=== PATIENT | male | born 1975 | race Caucasian/White ===

== ENCOUNTER 2022-02-07 10:45 | Observation (INO) ==
[2022-02-07 12:09] LABS: Basophils % 0.3 % (0.0-0.8); Eosinophils % 0.2 % (0.00-10.9); Hematocrit 49.8 VOL% (42.0-52.0); Immature Granulocytes % 0.6 %; Immature Granulocytes Absolute 0.07 #; Lymphocytes # 1.4 10*3/uL (1.4-4.0); Lymphocytes % 12.4 % (21.2-54.2); Mean Corpuscular HGB Conc 32.1 GM/DL (32-36); Mean Corpuscular Volume 85.4 FL (87-102); Mean Platelet Volume 9.2 FL (9.6-12.0); Monocytes # 0.7 10*3/uL (0.11-0.8); Monocytes % 6.1 % (1.7-12.7); Neutrophils % 80.4 % (38.7-73.9); Platelet Count 250 T/CUMM (130-400); Red Blood Count 5.83 MC/CUMM (3.8-5.5); Red Cell Distribution Width 12.8 % (9.3-17.3)
[2022-02-07 12:26] LABS: Bacteria,Urine Occasional /HPF (Few); Mucus,Urine Occasional /LPF (Occasional); RBC,Urine 1 /HPF (0-4)
[2022-02-07 12:28] LABS: Albumin 3.7 G/DL (3.4-5.0); Bilirubin,Total 1.8 MG/DL (0.20-1.00); Calcium 9.6 MG/DL (8.5-10.1); Potassium 3.9 MMOL/L (3.5-5.1); Total Protein 8.1 G/DL (6.4-8.2)
[2022-02-07 12:29] LABS: Urine Appearance Clear (Clear); Urine Color Yellow (Yellow)
[2022-02-07 12:30] LABS: Bilirubin,Urine Negative (Negative); Blood, Urine Negative (Negative); Glucose,Urine (UA) Negative (Negative); Ketones,Urine >160 mg/dL (Negative); Nitrite,Urine Negative (Negative); Protein,Urine Negative (Negative); Urine Urobilinogen 0.2 eU/dL (<2.0); Urine pH 5.5 (4.5-8.0)
[2022-02-07] MEDS ORDERED: ACETAMINOPHEN 325 MG TABLET PO PRN (14:03)
[2022-02-07] MEDS ORDERED: ONDANSETRON 4 MG/2 ML VIAL IV PRN (14:03)
[2022-02-07] MEDS: metroNIDAZOLE INJ 500 MG/100 ML PREMIX IV SCH ×2 (14:29→22:05)
[2022-02-07] MEDS: PIPERACILLIN/TAZOBACTAM 3,375 MG in SODIUM CHLORIDE 0.9% 100 ML IV SCH ×2 (14:30→23:08)
[2022-02-07] MEDS: SODIUM CHLORIDE 0.9% 1,000 ML IV SCH (18:00)
[2022-02-08] MEDS: metroNIDAZOLE INJ 500 MG/100 ML PREMIX IV SCH ×3 (05:49→22:07)
[2022-02-08] MEDS: PIPERACILLIN/TAZOBACTAM 3,375 MG in SODIUM CHLORIDE 0.9% 100 ML IV SCH ×3 (06:54→23:08)
[2022-02-08] MEDS: ANASTROZOLE 1 MG TABLET PO SCH (09:02)
[2022-02-08] MEDS: ZINC GLUCONATE 50 MG TABLET PO SCH (09:02)
[2022-02-08] MEDS: CHOLECALCIFEROL 1,000 UNIT TABLET PO SCH (09:02)
[2022-02-08] MEDS: ASCORBIC ACID 500 MG TABLET PO SCH (09:03)
[2022-02-08] MEDS: MULTIVITAMIN (CENTRUM) TABLET PO SCH (09:03)
[2022-02-08] MEDS: PANTOPRAZOLE 40 MG TABLET PO SCH (09:03)
[2022-02-08] MEDS: NON-FORMULARY MEDICATION (Fish,Bora,Flax Oils-Om3,6,9no1 [Omega 3-6-9] 1,200 mg Capsule) PO SCH (09:30)
[2022-02-08] MEDS: NALTREXONE 50 MG PO SCH (09:30)
[2022-02-08] MEDS: PRASTERONE 25 MG PO SCH (09:31)
[2022-02-08] MEDS: NON-FORMULARY MEDICATION (Turmeric 400 mg Capsule) PO SCH (09:31)
[2022-02-08] MEDS: SODIUM CHLORIDE 0.9% 1,000 ML IV SCH (19:00)
[2022-02-09] MEDS: metroNIDAZOLE INJ 500 MG/100 ML PREMIX IV SCH ×3 (05:40→22:26)
[2022-02-09] MEDS: SODIUM CHLORIDE 0.9% 1,000 ML IV SCH ×2 (05:40→22:26)
[2022-02-09 06:12] LABS: Basophils % 0.4 % (0.0-0.8); Eosinophils # 0.1 10*3/uL (0.0-0.87); Eosinophils % 1.8 % (0.00-10.9); Hematocrit 45.7 VOL% (42.0-52.0); Hemoglobin 14.4 GM/DL (14.0-18.0); Immature Granulocytes % 0.9 %; Immature Granulocytes Absolute 0.06 #; Lymphocytes # 1.3 10*3/uL (1.4-4.0); Lymphocytes % 19.1 % (21.2-54.2); Mean Corpuscular HGB Conc 31.5 GM/DL (32-36); Mean Corpuscular Volume 88.2 FL (87-102); Mean Platelet Volume 9.5 FL (9.6-12.0); Monocytes # 0.6 10*3/uL (0.11-0.8); Monocytes % 9.4 % (1.7-12.7); Neutrophils % 68.4 % (38.7-73.9); Platelet Count 256 T/CUMM (130-400); Red Blood Count 5.18 MC/CUMM (3.8-5.5); Red Cell Distribution Width 12.9 % (9.3-17.3); White Blood Count 6.8 T/CUMM (4-12)
[2022-02-09 06:28] LABS: Calcium 8.9 MG/DL (8.5-10.1); Osmolality,Calculated 280.3 MOS/KG (273-304)
[2022-02-09] MEDS: MULTIVITAMIN (CENTRUM) TABLET PO SCH (08:07)
[2022-02-09] MEDS: ANASTROZOLE 1 MG TABLET PO SCH (08:07)
[2022-02-09] MEDS: PIPERACILLIN/TAZOBACTAM 3,375 MG in SODIUM CHLORIDE 0.9% 100 ML IV SCH (08:07)
[2022-02-09] MEDS: PRASTERONE 25 MG PO SCH (08:08)
[2022-02-09] MEDS: NON-FORMULARY MEDICATION (Fish,Bora,Flax Oils-Om3,6,9no1 [Omega 3-6-9] 1,200 mg Capsule) PO SCH (08:08)
[2022-02-09] MEDS: NON-FORMULARY MEDICATION (Turmeric 400 mg Capsule) PO SCH (08:08)
[2022-02-09] MEDS: NALTREXONE 50 MG PO SCH (08:08)
[2022-02-09] MEDS: CHOLECALCIFEROL 1,000 UNIT TABLET PO SCH (08:08)
[2022-02-09] MEDS: ASCORBIC ACID 500 MG TABLET PO SCH (08:08)
[2022-02-09] MEDS: PANTOPRAZOLE 40 MG TABLET PO SCH (08:08)
[2022-02-09] MEDS: ZINC GLUCONATE 50 MG TABLET PO SCH (08:08)
[2022-02-09] MEDS ORDERED: LEVOFLOXACIN 500 MG TABLET PO SCH (12:00)
[2022-02-09] MEDS ORDERED: TESTOSTERONE CYPIONATE 200 MG/ML SUBCUT SCH (16:10)
[2022-02-10] MEDS: metroNIDAZOLE INJ 500 MG/100 ML PREMIX IV SCH (05:30)
[2022-02-10 07:51] VITALS: BP 110/79
[2022-02-10] MEDS: SODIUM CHLORIDE 0.9% 1,000 ML IV SCH ×2 (08:56)
[2022-02-10] MEDS: PANTOPRAZOLE 40 MG TABLET PO SCH ×2 (08:57→09:02)
[2022-02-10] MEDS: ANASTROZOLE 1 MG TABLET PO SCH ×2 (08:57→09:02)
[2022-02-10] MEDS: CHOLECALCIFEROL 1,000 UNIT TABLET PO SCH ×2 (08:57→09:03)
[2022-02-10] MEDS: OMEGA 3 ACID ETHYL ESTERS 1 GM CAPSULE PO SCH ×2 (08:57→09:02)
[2022-02-10] MEDS: ASCORBIC ACID 500 MG TABLET PO SCH ×2 (08:57→09:02)
[2022-02-10] MEDS: MULTIVITAMIN (CENTRUM) TABLET PO SCH ×2 (08:57→09:02)
[2022-02-10] MEDS: ZINC GLUCONATE 50 MG TABLET PO SCH ×2 (08:58→09:03)
[2022-02-10] MEDS: NALTREXONE 50 MG PO SCH (09:02)
== END 2022-02-10 10:41 | disposition home or self-care (01) ==
LOC: N.ED 10:45 → INTOOBSV 13:58 → N.EDINP 13:58 → N.5E 16:57
PROVIDERS: ADMIT Family Medicine; ATTEND Family Medicine